=== PATIENT | female | born 1995 | race Caucasian/White ===

== ENCOUNTER 2025-04-29 01:50 | Emergency (ER) | payer MEDICAID, SELFPAY ==
[2025-04-29 01:51] VITALS: BP 150/109; PULSE 98; RESP 18; TEMP 36.7; O2SAT 98; BMI 38.3
--- NOTE | 2025-04-29 02:19 | EDS_ITS ---
HPI History of Present Illness Chief Complaint: Dental Informant: patient Narrative Narrative: Patient is a 30-year-old female who reports a history of "bad teeth" but otherwise no clinically significant medical problems. She states that over the last 1 to 2 days she has had pain in the upper mouth/jaw. She states there has been no trauma. She denies any fevers chills difficulty breathing or swallowing. She states the pain has been bearable but this evening around 8 or 9:00 the pain began to increase and she noticed facial swelling. She states she cannot sleep secondary to the worsening pain and with concern for dental infection presents for evaluation. [facility] Medical History no medical history no medical history Home Medications Medication Instructions Recorded Last Taken Type clindamycin HCl 300 mg capsule 300 mg PO 4X/DAY 10 day s #40 caps 04/29/25 Unknown Rx (Cleocin HCl) oxycodone-acetaminophen 5 mg-325 1 tab PO Q6H PRN pain 3 days #12 04/29/25 Unknown Rx mg tablet (Percocet) tabs Allergy/AdvReac Type Severity Reaction Status Date / Time Penicillins Allergy Hives Verified 04/29/25 01:54 Social History Smoking Status: Current every day smoker tobacco type: cigarettes ROS ROS ED Constitutional Constitutional ED: Denies chills or fever(s) ENT ENT ED: Reports other Details: Positive dental pain and facial swelling ; Denies sore throat Cardiovascular Cardiovascular: Denies chest pain Respiratory/Chest Respiratory/Chest: Denies cough or dyspnea Gastrointestinal Gastrointestinal: Denies abdominal pain, diarrhea, nausea or vomiting Genitourinary Genitourinary ED: Reports other Details: Patient denies any concern for Musculoskeletal Musculoskeletal: Denies myalgias or neck pain Integumentary Denies rash Neurologic Neurologic: Denies headache(s) Hematologic/Lymphatic Hematologic/Lymphatic: Denies easy bleeding or easy bruising Allergic/Immunologic Allergic/Immunologic ED: Denies mouth swelling or tongue swelling EXAM Physical Exam Const Vital Signs: 04/29/25 01:51 Temperature 98.0 F Temperature Source Oral Pulse Rate 98 Respiratory Rate 18 Blood Pressure 150/109 H Blood Pressure Mean 122 Pulse Ox 98 Oxygen Delivery Method Room Air Positive well nourished, well developed and obese General Appearance ED: well developed; Negative for pallor Nutritional Appearance: obese HEENT HEENT Narrative: Normocephalic atraumatic No tongue or lip swelling no oral lesions no airway edema or compromise Patient has multiple dental caries noted; however no obvious signs of dental abscess. Patient does have mild soft tissue swelling along the right cheek and lower jaw concerning for developing infection without overlying changes to suggest cellulitis No changes to suggest ANUG Eyes PERRL and EOMs intact bilaterally General Eye ED: Negative for scleral icterus Neck supple Neck Narrative: No brawny edema in the submental space to suggest Alpesh's angina Resp normal respiratory effort and clear to auscultation bilaterally Cardio regular rate and regular rhythm Extremity normal to inspection Neuro oriented x3, CN's II-XII intact bilaterally and no sensory deficits noted Sensorium / Orientation: alert Motor Exam: strength 5/5 throughout Psych mental status grossly normal Skin no rashes or lesions noted and no wounds General Skin Exam: Negative for jaundice or pallor MDM MDM MDM Narrative Medical decision making narrative: Patient arrived to the ER hypertensive but otherwise with stable vitals. She reported a history of "bad teeth". Physical exam confirms this but there is no findings of abscess on the gingival surface requiring incision and drainage. Furthermore she does not have brawny edema to suggest Alpesh's angina. There are no signs of ANUG. She has no findings of airway compromise and therefore there is no need for intubation or airway stabilization. No changes or physical exam findings to suggest epiglottitis. Therefore I feel no need for imaging or laboratory studies. The patient's history and exam is consistent with a developing dental infection. She was offered a dental block to help with immediate pain relief. She denied a injection at this time. As her history and exam indicates a developing dental infection she will be placed on clindamycin secondary to her penicillin allergy. Based on her increased pain I will provide a short round of Percocet for improved pain coverage. However without signs of systemic infection or airway edema or compromise she does not need further workup and she is otherwise safe for discharge History & Record Review Discussion w/independent historian: Patient Discharge Plan Triage Chief Complaint: Dental ED Provider: Rory Rojas Dx/Rx/DC Orders Clinical Impression: Dental infection, Pain due to dental caries, Tobacco use Instructions: ED Dental Pain, ED Dental Abscess Prescriptions: New clindamycin HCl [Cleocin HCl] 300 mg capsule 300 mg PO 4X/DAY 10 Days Qty: 40 0RF oxycodone-acetaminophen [Percocet] 5-325 mg tablet 1 tab PO Q6H PRN (Reason: pain) 3 Days Qty: 12 0RF Primary Care Provider: Care Physician,No Primary Activity Restrictions/Additional Instructions: Your history and exam indicate a developing dental infection. Take the antibiotic as directed to resolve the infection which will resolve the pain. However this takes 2 to 3 days to take effect and therefore use the prescribed Percocet for improved pain control. Follow-up with your dentist for repeat evaluation and return to the ER should you have any further concerns Print Language: Kinyarwanda Disposition Disposition: Home, Self Care Discharge Date/Time: 04/29/25 02:28 D/C Safety Score for UGIB Assessment Blunt-Blatchford Bleeding Score (GBS): Stratifies upper GI bleeding patients who are "low-risk" and candidates for outpatient management. Hemoglobin, BUN, Recent Vital Signs: Pulse Rate 98 Blood Pressure 150/109 Total Risk Score: 0 Score Interpretation: Score of 0: A GBS of 0 is a “Low Risk” GI bleed, and is highly sensitive (99.6% in a 2007 retrospective study) for predicting which patients did not require any “medical intervention”: blood transfusion, endoscopy, or surgery. This was confirmed in a 2009 Lanc study where patients with a score of 0 were actually discharged and had no GI bleeding mortality at 6 month followup Score above 0: A GBS greater than zero suggests a “High Risk” GI bleed that is likely to require “medical intervention”: transfusion, endoscopy, or surgery. A higher GBS also correlated with a higher likelihood of needing intervention Scores >/= 6 are associated with >50% risk of needing intervention D/C Safety Score for LGIB Assessment Assessment Tool: Readmission and adverse event risk in patients with acute lower GI bleeding. Age, in years: <40 Hemoglobin and Recent Vital Signs: Pulse Rate 98 04/29/25 01:51 Blood Pressure 150/109 04/29/25 01:51 Probability of safe discharge: 99% Total Risk Score: 0 Score Interpretation: Probability Percentage of safe discharge (absence of rebleeding, blood transfusion, therapeutic intervention, 28 day readmission, or ) Score of 8 or below: Consider discharge, with appropriate precautions. Score of 9 or above: Discharge NOT recommended. Consider admission with further workup and resuscitation as necessary.
[2025-04-29 02:28] VITALS: BP 145/102; PULSE 94; RESP 16; TEMP 36.7; O2SAT 98
== END 2025-04-29 02:28 | disposition home or self-care (01) ==
LOC: ED 02:24
PROVIDERS: Emergency Provider Emergency Medicine; Visit Provider Emergency Medicine
DX: K04.7 Periapical abscess without sinus (principal); K08.89 Other specified disorders of teeth and supporting structures; F17.210 Nicotine dependence, cigarettes, uncomplicated; K02.9 Dental caries, unspecified
CPT/HCPCS: 99283